=== PATIENT | female | born 2000 | race Caucasian/White ===

== ENCOUNTER 2023-06-13 15:45 | Emergency (ER) | payer OTHER ==
[~2023-06-13] VITALS: Ht 165.1 cm; Wt 75.0 kg
[2023-06-13 17:05] VITALS: BP 106/60; PULSE 87; RESP 16; TEMP 98.3; O2SAT 99
[2023-06-13] MEDS ORDERED: GUAI-948 MT (18:00)
== END 2023-06-13 20:06 | disposition home or self-care (01) ==
LOC: ER 15:45
DX: J06.9 Acute upper respiratory infection, unspecified (principal); R05.9 Cough, unspecified
CPT/HCPCS: 99281

== ENCOUNTER 2023-09-21 10:49 | Emergency (ER) | payer OTHER ==
[~2023-09-21] VITALS: Ht 162.6 cm; Wt 67.0 kg
[~2023-09-21 10:49] MED LIST: GUAI-948 MT
[2023-09-21 11:01] VITALS: O2SAT 100
[2023-09-21] MEDS ORDERED: LIDO700A15 TP (12:43)
[2023-09-21] MEDS ORDERED: METH-653 MT (12:43)
[2023-09-21 12:51] VITALS: BP 114/67; PULSE 65; RESP 16; TEMP 98.9
== END 2023-09-21 12:53 | disposition home or self-care (01) ==
LOC: ER 10:49
DX: S16.1XXA Strain of muscle, fascia and tendon at neck level, initial encounter (principal); M43.6 Torticollis; M62.838 Other muscle spasm; J06.9 Acute upper respiratory infection, unspecified; R05.9 Cough, unspecified; X58.XXXA Exposure to other specified factors, initial encounter; Y93.89 Activity, other specified; Y92.89 Other specified places as the place of occurrence of the external cause; Y99.8 Other external cause status
CPT/HCPCS: 99282; 99283

== ENCOUNTER 2024-06-16 16:25 | Emergency (ER) | payer OTHER ==
[~2024-06-16] VITALS: Ht 160 cm; Wt 70.0 kg
[~2024-06-16 16:25] MED LIST changes: +LIDO700A15 TP; +METH-653 MT
[2024-06-16 16:49] VITALS: O2SAT 99
[2024-06-16 19:40] LABS: CLARITY URINE CLOUDY (CLEAR); COLOR URINE DARK YELLOW (YELLOW); GLUCOSE URINE NEGATIVE (NEGATIVE); KETONES URINE TRACE (NEGATIVE); LEUKOCYTE ESTERASE URINE TRACE (NEGATIVE); NITRITE URINE NEGATIVE (NEGATIVE); OCCULT BLOOD URINE NEGATIVE (NEGATIVE); PH URINE 5.5 (4.5-8.0); PROTEIN URINE TRACE (NEGATIVE); SPECIFIC GRAVITY URINE 1.025 (1.005-1.030)
[2024-06-16 19:45] LABS: CHLORIDE 105 mEq/L (98-107); POTASSIUM 4.9 mEq/L (3.5-5.1); SODIUM 137 mEq/L (136-145)
[2024-06-16 19:46] LABS: CALCIUM 9.6 mg/dL (8.7-10.4); CARBON DIOXIDE 25 mEq/L (21-32)
[2024-06-16 19:50] LABS: CREATININE 0.8 mg/dL (0.6-1.0)
[2024-06-16 19:51] LABS: GLUCOSE 77 mg/dL (70-105); UREA NITROGEN BLOOD 6 mg/dL (9-23)
[2024-06-16 19:52] LABS: HCG SCREEN POSITIVE
[2024-06-16 19:53] LABS: ALANINE AMINOTRANSFERASE 92 IU/L (10-49); ALBUMIN 4.4 g/dL (3.2-4.8); ASPARTATE AMINOTRANSFERASE 79 IU/L (<34); BILIRUBIN DIRECT 0.3 mg/dL (<=3.0); PROTEIN TOTAL 8.1 g/dL (6.0-8.3)
[2024-06-16] MEDS: ONDANSETRON 4MG ODT PO ONE (20:00)
[2024-06-16 20:01] LABS: BACTERIA URINE TRACE; RBC URINE 0-2 /hpf (0-2); SQUAMOUS EPITHELIAL CELL URINE 2+ /lpf (RARE/1+)
[2024-06-16 21:58] LABS: BASOPHILS % 0.2 % (0.0-2.0); EOSINOPHILS % 0.7 % (0.0-5.0); HEMATOCRIT. 40.9 % (36.0-48.0); HEMOGLOBIN. 13.4 g/dL (12.0-16.0); LYMPHOCYTES % 24.3 % (20.0-50.0); MEAN CORPUSCULAR HEMOGLOBIN 27.2 pg (28.0-32.0); MEAN CORPUSCULAR HGB CONC 32.7 g/dL (31.0-37.0); MEAN CORPUSCULAR VOLUME 83.2 fL (81.0-99.0); MEAN PLATELET VOLUME 9.9 fl (7.4-10.4); MONOCYTES % 6.2 % (2.0-8.0); NEUTROPHILS % 68.6 % (40.0-76.0); PLATELET 235 x1000/uL (130-400); RED BLOOD CELL COUNT 4.92 mill/uL (4.2-5.4); RED CELL DISTRIBUTION WIDTH 12.8 % (11.6-14.6); WHITE BLOOD COUNT 12.9 x1000/uL (4.5-11.0)
[2024-06-16] MEDS: ACETAMINOPHEN 325MG TABLET PO ONE (21:59)
[2024-06-16] MEDS ORDERED: CEPH500C2 MT (22:06)
[2024-06-16] MEDS ORDERED: ONDA-239 PO (22:07)
[2024-06-16 22:21] VITALS: BP 103/61; PULSE 63; RESP 18; TEMP 36.83628; O2SAT 100
== END 2024-06-16 22:30 | disposition home or self-care (01) ==
LOC: ER 16:25
DX: O23.41 Unspecified infection of urinary tract in pregnancy, first trimester (principal); N39.0 Urinary tract infection, site not specified; R10.2 Pelvic and perineal pain; Z3A.08 8 weeks gestation of pregnancy
CPT/HCPCS: 36415; 76801; 80048; 80076; 81003; 81025; 84702; 84703; 85025; 86850; 86900; 99284